=== PATIENT | female | born 1955 | race Caucasian/White ===

== ENCOUNTER → 2024-08-25 10:37 | Outpatient (REF) | payer MEDICARE, SELFPAY | LOC: MRI 3T 10:37 | PROVIDERS: ATTENDING PHYSICIAN Student in an Organized Health Care Education/Training Program; FAMILY PHYSICIAN Nurse Practitioner Gerontology | DX: M54.16 Radiculopathy, lumbar region (principal); M54.50 Low back pain, unspecified; M21.371 Foot drop, right foot | CPT/HCPCS: 72148 ==